=== PATIENT | male | born 1985 | race Caucasian/White ===

== ENCOUNTER 2016-09-04 16:00 | Outpatient (RCR) | payer BC | END 2016-09-30 | disposition home or self-care (01) | LOC: PTY 16:00 | DX: M54.12 Radiculopathy, cervical region (principal); M54.2 Cervicalgia ==

== ENCOUNTER 2016-10-02 16:00 | Outpatient (RCR) | payer BC | END 2016-10-28 | disposition home or self-care (01) | LOC: PTY 16:00 | DX: M54.12 Radiculopathy, cervical region (principal); M54.2 Cervicalgia ==